=== PATIENT | female | born 1975 | race Caucasian/White ===

== ENCOUNTER 2019-05-31 07:56 | Emergency (ER) | payer OTHER ==
[2019-05-31] MEDS ORDERED: cefTRIAXone 1 GM Vial IM ONE (08:39)
--- NOTE | 2019-05-31 08:49 | EDM.PDOC ---
ED HPI GENERAL MEDICAL PROBLEM - General Chief Complaint: ENT Problem Stated Complaint: sore throat Time Seen by Provider: 05/31/19 08:15 Source of Information: Reports: Patient History Limitations: Reports: No Limitations - History of Present Illness INITIAL COMMENTS - FREE TEXT/NARRATIVE: Pt with increasing sore throat No fever Onset: Gradual Duration: Day(s): Location: Reports: Face sore throat Pain Score (Numeric/FACES): 10 - Related Data Allergies Allergy/AdvReac Type Severity Reaction Status Date / Time Sulfa (Sulfonamide Allergy Rash Verified 05/31/19 08:01 Antibiotics) Home Meds: Home Meds Acetaminophen/Aspirin/Caffeine [Pain Reliever Plus] 1 tab PO Q6HR PRN 10/07/13 [ History] Cholecalciferol (Vitamin D3) [Vitamin D3] 1,000 unit PO DAILY 10/07/13 [History] Cyclobenzaprine [Flexeril] 10 mg PO TID PRN 10/07/13 [History] Lysine 1,000 mg PO DAILY 10/07/13 [History] Vitamin B Complex [B Complex] 1 each PO DAILY 10/07/13 [History] Magnesium 500 mg PO DAILY 05/31/19 [History] [place]-3/DHA/Epa/Fish Oil [Fish Oil 1,000 mg Softgel] 1 each PO DAILY 05/31/19 [ History] Past Medical History HEENT History: Reports: Impaired Vision, Other (See Below) Other HEENT History: had lasik eye surgery preformed - Past Surgical History HEENT Surgical History: Reports: Adenoidectomy, LASIK, Tonsillectomy GI Surgical History: Reports: Other (See Below) Other GI Surgeries/Procedures: hemorrhoidectomy with complications Social & Family History - Tobacco Use Smoking Status *Q: Never Smoker Second Hand Smoke Exposure: No - Caffeine Use Caffeine Use: Reports: Coffee Other Caffeine Use: 2 cups in am - Recreational Drug Use Recreational Drug Use: No ED ROS ENT - Review of Systems Review Of Systems: See Below Constitutional: Reports: No Symptoms HEENT: Reports: Throat Pain, Throat Swelling ED EXAM, ENT - Physical Exam Exam: See Below Exam Limited By: No Limitations General Appearance: Alert, Mild Distress Ears: Normal TMs Nose: Normal Inspection Mouth/Throat: Pharyngeal Erythema, Tonsillar Erythema, Tonsillar Exudates, Tonsillar Swelling Course - Vital Signs Last Recorded V/S: Last Vital Signs Temp 97.0 F 05/31/19 07:57 Pulse 86 05/31/19 07:57 Resp 18 05/31/19 07:57 BP 118/47 L 05/31/19 07:57 Pulse Ox 100 05/31/19 07:57 - Orders/Labs/Meds Meds: Medications Discontinued Medications Generic Name Dose Route Start Last Admin Trade Name Cora PRN Reason Stop Dose Admin Ceftriaxone Sodium 1 gm 05/31/19 08:39 Rocephin IM 05/31/19 08:40 ONETIME ONE - Re-Assessments/Exams Free Text/Narrative Re-Assessment/Exam: 05/31/19 08:46 Pt strep positive Pt given Rocephin 1 gm IM in ER 05/31/19 08:48 Pt given take home Rx Amoxicillin 500 mg TID for 10 days Departure - Departure Time of Disposition: 09:00 Disposition: Home, Self-Care 01 Clinical Impression: Strep pharyngitis - Discharge Information *PRESCRIPTION DRUG MONITORING PROGRAM REVIEWED*: Not Applicable *COPY OF PRESCRIPTION DRUG MONITORING REPORT IN PATIENT GIRMA: Not Applicable Instructions: Strep Throat Referrals: Laila Plascencia NP [Primary Care Provider] - Additional Instructions: Rx Amoxicillin 500 mg three times a day for 10 days Tylenol or Motrin as needed Encourage fluids Follow up in clinic Sepsis Event Note - Evaluation Sepsis Screening Result: No Definite Risk - Focused Exam Vital Signs: Vital Signs Temp Pulse Resp BP Pulse Ox 05/31/19 07:57 97.0 F 86 18 118/47 L 100 Date Exam was Performed: 05/31/19 Time Exam was Performed: 08:45
== END 2019-05-31 09:04 | disposition home or self-care (01) ==
LOC: LL.ED 07:56
DX: J02.0 Streptococcal pharyngitis (principal); Z88.2 Allergy status to sulfonamides
CPT/HCPCS: 87430; 87804; 96372; 99283; J0696; J2001

== ENCOUNTER 2022-07-27 21:28 | Observation (INO) | payer OTHER ==
[2022-07-27] MEDS ORDERED: Diazepam 5 MG Tab PO ONE (22:20)
[2022-07-27] MEDS ORDERED: methylPREDNISolone Sodium Succinate 125 MG/2 ML SDV IVPUSH ONE (22:20)
[2022-07-27] MEDS ORDERED: HYDROmorphone 0.5 MG/0.5 ML Syringe IVPUSH ONE (22:21)
[2022-07-27] MEDS ORDERED: Ondansetron 4 MG/2 ML SDV IVPUSH PRN (22:21)
[2022-07-27] MEDS ORDERED: Sodium Chloride 0.9% 1,000 ML IV ONE (22:22)
[2022-07-27] MEDS ORDERED: Acetaminophen 325 MG Tab PO SCH (22:30)
[2022-07-27] MEDS: Ketorolac 15 MG/ML SDV IVPUSH SCH (22:39)
[2022-07-27] MEDS: Sodium Chloride 0.9% 10 ML Syringe FLUSH PRN (22:41)
[2022-07-28] MEDS: Acetaminophen 325 MG Tab PO SCH ×2 (01:50→08:43)
[2022-07-28] MEDS ORDERED: traMADol 50 MG Tab PO ONE ×2 (02:00→08:00)
[2022-07-28] MEDS: Ketorolac 15 MG/ML SDV IVPUSH SCH ×2 (04:26→11:24)
[2022-07-28] MEDS ORDERED: Diazepam 5 MG Tab PO ONE (08:00)
[2022-07-28 08:28] LABS: HEMATOCRIT 39.8 % (34.0-46.0); HEMOGLOBIN 12.8 g/dL (11.7-15.5); LYMPHOCYTES ABSOLUTE AUTO 0.64 K/uL (0.50-3.50); LYMPHOCYTES PERCENT AUTO 9.9 % (10.0-50.0); MEAN CORPUSCULAR HEMOGLOBIN 29.3 pg (28.2-33.3); MEAN CORPUSCULAR HGB CONC 32.2 g/dL (31.7-36.0); MEAN CORPUSCULAR VOLUME 91.1 fL (84.0-98.0); MONOCYTES ABSOLUTE AUTO 0.05 K/uL (0.00-1.00); MONOCYTES PERCENT AUTO 0.8 % (2.0-14.0); NEUTROPHILS ABSOLUTE AUTO 5.77 K/uL (1.40-7.00); NEUTROPHILS PERCENT AUTO 89.3 % (45.0-80.0); PLATELET COUNT,PLT 353 K/uL (150-350); RED BLOOD CELL COUNT 4.37 M/uL (3.77-5.09); RED CELL DISTRIBUTION WIDTH 12.7 % (11.2-14.1); WHITE BLOOD CELL COUNT,WBC 6.5 K/uL (4.0-10.2)
[2022-07-28 08:49] LABS: ALBUMIN 3.7 g/dL (3.4-5.0); ANION GAP 7.3 meq/L (7-15); BILIRUBIN TOTAL 0.3 mg/dL (0.2-1.0); CALCIUM 8.4 mg/dL (8.5-10.1); CARBON DIOXIDE,CO2 27.7 mmol/L (21.0-32.0); CREATININE 0.7 mg/dL (0.51-1.17); EST CRCL DRUG DOSING (CG) 94.01 mL/min; MAGNESIUM 1.9 mg/dL (1.8-2.4); POTASSIUM,K 4.2 mmol/L (3.5-5.1); PROTEIN TOTAL,TP 6.8 g/dL (6.4-8.2)
[2022-07-28] MEDS: Sodium Chloride 0.9% 10 ML Syringe FLUSH PRN (11:25)
[2022-07-28] MEDS ORDERED: Take Home: traMADol 50 MG, 4 Tab Pack PO ONE (11:28)
[2022-07-28] MEDS ORDERED: Take Home: predniSONE 20 MG, 4 Tab Pack PO ONE (11:29)
== END 2022-07-28 12:30 | disposition home or self-care (01) ==
LOC: LL.ED 21:28 → LL.MS 21:56
PROVIDERS: ADMIT Emergency Medicine; ATTEND Emergency Medicine
DX: M54.41 Lumbago with sciatica, right side (principal); G89.29 Other chronic pain; G44.229 Chronic tension-type headache, not intractable; G43.909 Migraine, unspecified, not intractable, without status migrainosus; Z88.2 Allergy status to sulfonamides; Z79.899 Other long term (current) drug therapy
CPT/HCPCS: 36415; 80053; 83735; 85025; 96374; 96375; 96376; 99284; A9270-GY; G0378; J1170; J1885; J2930; J3490; J7030